=== PATIENT | male | born 1995 | race African-American/Black ===

== ENCOUNTER 2016-09-06 21:06 | Emergency (ER) | payer MEDICAID ==
[~2016-09-06] VITALS: Ht 167.6 cm; Wt 70.5 kg
[~2016-09-06 21:06] MED LIST: TNFMISC
[2016-09-06] MEDS ORDERED: ONDANSETRON HCL 4 MG/2 ML VIAL IVP ONE (21:30)
[2016-09-06 21:32] LABS: BASOPHILS # (AUTO) 0.01 K/uL (0.00-0.20); BASOPHILS % (AUTO) 0.2 % (0.0-2.0); EOSINOPHILS # (AUTO) 0.02 K/uL (0.00-0.70); EOSINOPHILS % (AUTO) 0.31 % (1.0-6.0); HEMATOCRIT 48.5 % (41-53); LYMPHOCYTES # (AUTO) 0.9 K/uL (1.0-4.8); MEAN CORPUSCULAR HEMOGLOBIN 26.6 pg (26.0-34.0); MEAN CORPUSCULAR VOLUME 81 fL (80-100); MONOCYTES # (AUTO) 0.4 K/uL (0.1-1.0); MONOCYTES % (AUTO) 6.3 % (2.0-9.0); NEUTROPHILS % (AUTO) 79.2 % (40.0-70.0); PLATELET COUNT (AUTO) 197 K/uL (150-450); RED BLOOD CELL COUNT(AUTO) 6.02 MIL/uL (4.50-5.90); RED CELL DISTRIBUTION WIDTH 12.9 % (11.5-14.5); WHITE BLOOD COUNT (AUTO) 6.4 K/uL (4.5-11.0)
[2016-09-06 21:44] LABS: SALICYLATE 22.2 mg/dL (2.8-20.0)
[2016-09-06 22:48] LABS: ANION GAP 17 mmol/L (8-16); CALCIUM, TOTAL 9.2 mg/dL (8.8-10.5); CARBON DIOXIDE 23 mmol/L (22-29); CHLORIDE 101 mmol/L (98-107); GLOMERULAR FILTR. RATE CALC > 60 mL/min (>60); POTASSIUM 3.2 mmol/L (3.5-5.1); SODIUM SERUM 141 mmol/L (136-145); UREA NITROGEN, BLOOD 14 mg/dL (7-18)
[2016-09-06 22:54] LABS: ACETAMINOPHEN 16 mcg/mL (10-30); ALANINE AMINOTRANSFERASE 23 U/L (12-78); ALBUMIN 4.3 g/dL (3.4-5.0); ASPARTATE AMINOTRANSFERASE 25 U/L (15-37); BILIRUBIN,TOTAL 0.8 mg/dL (0.1-1.0); TOTAL PROTEIN, SERUM 8.5 g/dL (6.4-8.2)
[2016-09-07 00:19] LABS: ANION GAP 11 mmol/L (8-16); CALCIUM, TOTAL 9.2 mg/dL (8.8-10.5); CARBON DIOXIDE 26 mmol/L (22-29); CHLORIDE 103 mmol/L (98-107); CREATININE 1.16 mg/dL (0.60-1.30); GLOMERULAR FILTR. RATE CALC > 60 mL/min (>60); POTASSIUM 4.7 mmol/L (3.5-5.1); SODIUM SERUM 140 mmol/L (136-145); UREA NITROGEN, BLOOD 14 mg/dL (7-18)
[2016-09-07 00:23] LABS: ACETAMINOPHEN 11 mcg/mL (10-30)
[2016-09-07 00:29] LABS: SALICYLATE 19.2 mg/dL (2.8-20.0)
[2016-09-07 00:42] LABS: APPEARANCE,URINE CLEAR (CLEAR); GLUCOSE, URINE (UA) NEGATIVE (NEGATIVE); KETONES,URINE 15 mg/dL (NEGATIVE); LEUKOCYTE ESTERASE ,URINE TRACE (NEGATIVE); OCCULT BLOOD,URINE NEGATIVE (NEGATIVE); PROTEIN,URINE POS 1+ (NEGATIVE)
[2016-09-07 00:43] LABS: ADD UA MICROSCOPIC YES
[2016-09-07 00:54] LABS: RBC,URINE 0-2 /HPF (0-2); SQUAMOUS EPITHELIAL CELL,UR Rare /LPF (None Seen)
[2016-09-07 01:21] VITALS: BP 123/75
== END 2016-09-07 01:24 | disposition home or self-care (01) ==
LOC: EMS 21:09
DX: K29.70 Gastritis, unspecified, without bleeding (principal); R51 Headache; J45.909 Unspecified asthma, uncomplicated
CPT/HCPCS: 36415; 80048; 80053; 81001; 83690; 85025; 96374; 99284; G0480; G0481; J2405

== ENCOUNTER 2023-10-16 12:17 | Emergency (ER) | payer MEDICAID ==
[~2023-10-16] VITALS: Ht 177.8 cm; Wt 81.8 kg
[2023-10-16 12:24] VITALS: TEMP 98.5
[2023-10-16 13:08] VITALS: PULSE 97; RESP 18; O2SAT 98
[2023-10-16] MEDS: ALBUTEROL SULFATE 2.5 MG/0.5 ML NEB SOLUTION NEB ONE (13:09)
[2023-10-16] MEDS: IPRATROPIUM BROMIDE 0.5 MG/2.5 ML NEB SOLUTION NEB ONE (13:09)
[2023-10-16 13:19] VITALS: PULSE 94; RESP 18; O2SAT 100
[2023-10-16 13:28] LABS: BASOPHILS % (AUTO) 0.3 % (0.0-2.0); EOSINOPHILS % (AUTO) 0.7 % (1.0-6.0); HEMATOCRIT 48.8 % (41-53); HEMOGLOBIN 16.2 g/dL (13.5-17.5); LYMPHOCYTES # (AUTO) 1.2 K/uL (1.0-4.8); MEAN CORPUSCULAR HEMOGLOBIN 27.7 pg (26.0-34.0); MEAN CORPUSCULAR HGB CONC 33.2 G/dL (31.0-37.0); MEAN CORPUSCULAR VOLUME 83 fL (80-100); MONOCYTES # (AUTO) 0.6 K/uL (0.1-1.0); MONOCYTES % (AUTO) 6.8 % (2.0-9.0); NEUTROPHILS # (AUTO) 7.4 K/uL (1.8-7.7); NEUTROPHILS % (AUTO) 79.2 % (40.0-70.0); PLATELET COUNT (AUTO) 204 K/uL (150-450); RED BLOOD CELL COUNT(AUTO) 5.86 MIL/uL (4.50-5.90); RED CELL DISTRIBUTION WIDTH 13.5 % (11.5-14.5); WHITE BLOOD COUNT (AUTO) 9.4 K/uL (4.5-11.0)
[2023-10-16] MEDS ORDERED: IOHEXOL 350 MG/ML 100 ML VIAL ONE (13:28)
[2023-10-16] MEDS ORDERED: SODIUM CHLORIDE 0.9% 100 ML ONE (13:28)
[2023-10-16 13:36] LABS: ANION GAP 11 mmol/L (8-16); CALCIUM, TOTAL 9.6 mg/dL (8.8-10.5); CARBON DIOXIDE 25 mmol/L (22-29); CHLORIDE 97 mmol/L (98-107); CREATININE 1.07 mg/dL (0.60-1.30); GLOMERULAR FILTR. RATE CALC > 60 mL/min (>60); GLUCOSE,RANDOM 103 mg/dL (70-110); POTASSIUM 4.9 mmol/L (3.5-5.1); SODIUM SERUM 133 mmol/L (136-145); UREA NITROGEN, BLOOD 24 mg/dL (7-18)
[2023-10-16 13:47] LABS: TROPONIN I-HIGH SENSITIVITY 4 ng/L (<76)
[2023-10-16 13:48] LABS: B-TYPE NATRIURETIC PEPTIDE < 5 pg/mL (0-100)
[2023-10-16] MEDS: MAG HYDROX/ALUMINUM HYD/SIMETH 30 ML SUSPENSION UDCUP PO ONE (13:53)
[2023-10-16] MEDS: SODIUM CHLORIDE 0.9% 1,000 ML IV ONE (13:53)
[2023-10-16] MEDS: ONDANSETRON HCL 4 MG/2 ML VIAL IVP ONE (13:53)
[2023-10-16] MEDS: KETOROLAC TROMETHAMINE 30 MG/ML VIAL IVP ONE (13:54)
[2023-10-16 14:01] LABS: ALANINE AMINOTRANSFERASE 34 U/L (12-78); ALBUMIN 4.1 g/dL (3.4-5.0); ALKALINE PHOSPHATASE 130 U/L (46-116); ASPARTATE AMINOTRANSFERASE 40 U/L (15-37); BILIRUBIN,TOTAL 1.2 mg/dL (0.1-1.0); CREATINE KINASE, TOTAL ONLY 761 U/L (39-308); LIPASE 16 U/L (16-77); TOTAL PROTEIN, SERUM 8.7 g/dL (6.4-8.2)
[2023-10-16 14:03] LABS: COVID AG,FIA SOURCE NASAL SWAB
[2023-10-16] MEDS: FAMOTIDINE 20 MG/2 ML VIAL IVP ONE (14:03)
[2023-10-16 15:11] LABS: SARS-COV2 (COVID) ANTIGEN,FIA Negative (Negative)
[2023-10-16 15:38] LABS: TROPONIN I-HIGH SENSITIVITY 4 ng/L (<76)
[2023-10-16 15:54] LABS: INFLUENZA TYPE A NEGATIVE FOR TYPE A (NEGATIVE); INFLUENZA TYPE B NEGATIVE FOR TYPE B (NEGATIVE)
[2023-10-16 15:59] VITALS: BP 120/78; PULSE 88; RESP 15
[2023-10-16] MEDS ORDERED: ONDA-104 PO (16:22)
[2023-10-16] MEDS: ALBUTEROL SULFATE HFA 90 MCG/PUFF 8 GM INHALER IH ONE (17:16)
== END 2023-10-16 17:17 | disposition home or self-care (01) ==
LOC: EMS 12:17
DX: K52.9 Noninfective gastroenteritis and colitis, unspecified (principal); J45.909 Unspecified asthma, uncomplicated; Z20.822 Contact with and (suspected) exposure to COVID-19
CPT/HCPCS: 99285; 74177; 96374; 76705; 96375; 96361; 87426; 80053; 82550; 83690; 83880; 84484; 85025; 87804; 36415; 94640; 93005; J3490; J1885; J2405; Q9967; J7030; J7050; J3535; J7613

== ENCOUNTER 2024-09-05 06:30 | Emergency (ER) | payer SELFPAY ==
[~2024-09-05] VITALS: Ht 177.8 cm; Wt 68.2 kg
[~2024-09-05 06:30] MED LIST changes: +ONDA-104 PO; -TNFMISC
[2024-09-05 07:00] VITALS: PULSE 88; RESP 16; O2SAT 98; O2SAT 99
[2024-09-05] MEDS ORDERED: ALBU18HF12 IH (07:25)
[2024-09-05] MEDS ORDERED: PRED-554 PO (07:26)
[2024-09-05] MEDS: PredniSONE 20 MG TABLET PO ONE (07:29)
[2024-09-05] MEDS: ALBUTEROL SULFATE 2.5 MG/0.5 ML NEB SOLUTION NEB ONE (07:40)
[2024-09-05] MEDS: IPRATROPIUM BROMIDE 0.5 MG/2.5 ML NEB SOLUTION NEB ONE (07:40)
[2024-09-05 09:00] VITALS: BP 110/59; PULSE 62; RESP 18; TEMP 98.1; O2SAT 99
== END 2024-09-05 09:04 | disposition home or self-care (01) ==
LOC: EMS 06:31
DX: J45.901 Unspecified asthma with (acute) exacerbation (principal)
CPT/HCPCS: 99283; 94640; J7512